=== PATIENT | female | born 1955 | race Caucasian/White ===

== ENCOUNTER 2024-12-13 09:05 | Day surgery (SDC) | payer BC, SELFPAY ==
[2024-12-13 09:28] VITALS: BP 133/60; PULSE 63; RESP 18; TEMP 36.6; O2SAT 97
[2024-12-13] MEDS: sodium chloride 0.9% 1,000 ML 15 ML IV (09:45)
--- NOTE | 2024-12-13 09:47 | W.PM.OPSFHP ---
Same Day Surgery H&P Indication for Procedure/HPI DATE OF PROCEDURE: December 13, 2024 CHIEF COMPLAINT/INDICATIONFOR SURGICAL PROCEDURE: need for screening colonoscopy PREOP DIAGNOSIS: need for screening colonoscopy PLANNED PROCEDURE: Operation Date: 12/13/24 11:00 Proposed Procedures p Colonoscopy [id number] G0105 Z12.11(Not Applicable) - Johnathon Tijerina MD Medications/Allergies* Home Medications ?Medication ?Instructions ?Recorded ?Confirmed ?Type levothyroxine 100 mcg tablet 100 mcg PO QDAY 11/08/24 12/11/24 History black seed 4.5 gram/5 mL oral oil 4.5 g PO DAILY 12/11/24 12/11/24 History multivitamin-iron (hematinic) 1 tab PO DAILY 12/11/24 12/11/24 History xapyhcfmmrns-qirfgqyk-dllblzv-folic 1 tab PO DAILY 12/11/24 12/11/24 History acid 400 mcg-vit K1 20 mcg tablet (Women's 50 Plus Advanced) omega 8-omp-ifk-fish oil 1,200 mg 2 cap PO DAILY 12/11/24 12/11/24 History (144 mg-216 mg) capsule (Fish Oil) Allergies/Adverse Reactions Allergy/AdvReac Type Severity Reaction Status Date / Time No Known Allergies Allergy Unverified 11/08/24 10:18 Current Medications: Generic Name Dose Route Start Last Admin Trade Name Freq PRN Reason Stop Dose Admin Sodium Chloride 1,000 mls @ 15 mls/hr 12/13/24 09:10 12/13/24 09:45 Sodium Chloride 0.9% IV 12/14/24 09:09 15 mls/hr .Q24H PRN Administration COLONOSCOPY FLUIDS Pertinent History/Comorbid Conditions* Family History (Updated 11/08/24 @ 10:22 by ANNE MARIE Sampson) Leukemia Father Breast cancer Grandmother Social History Smoking and tobacco/nicotine status: current every day tobacco/nicotine user Pertinent Exam Findings alert, oriented x 3, clear to auscultation bilaterally and regular rate & rhythm Recommendations Surgery/Procedure today Coding Level of Care Code Acute Code for Chg Fwd
--- NOTE | 2024-12-13 09:56 | ANES.PREANE2 ---
Pre-Anesthetic Assessment Height/Weight: Height 1.7 m Weight 63.503 kg Temp Pulse Resp BP Pulse Ox O2 Del Method 97.9 F 63 18 133/60 97 Room Air 12/13/24 09:28 12/13/24 09:28 12/13/24 09:28 12/13/24 09:28 12/13/24 09:28 12/13/24 09:28 Preop Diagnosis: need for screening colonoscopy Operation Date: 12/13/24 11:00 Proposed Procedures p Colonoscopy [id number] G0105 Z12.11(Not Applicable) - Johnathon Tijerina MD Was Beta Mary taken within 24 hours: N/A Was Clonidine taken within 24 hours: N/A Last intake: Intake Last Liquid Date 12/12/24 Last Liquid Time 23:30 Last Solid Date 12/11/24 Last Solid Time 22:00 Social Alcohol and Tobacco Exam alert, oriented x 3, clear to auscultation bilaterally and regular rate & rhythm Airway Submandibular: within normal limits Cervical ROM: within normal limits Mallampati: Class II Dentition: full History/ROS No significant history except as noted and No significant complaints Pulmonary None reported CV/HEM None reported None reported Hepatic None reported GI None reported Metabolic Thyroid Disease [facility] [place] None reported Neuropsych None reported Anesthetic Plan ASA status: 2 Anesthesia: Anesthesia Evaluation and MAC Risk of > 500 ml blood loss (7ml/kg in children): No Medications/Allergies Home Medications ?Medication ?Instructions ?Recorded ?Confirmed ?Last Taken ?Type levothyroxine 100 mcg tablet 100 mcg PO QDAY 11/08/24 12/11/24 12/13/24 History black seed 4.5 gram/5 mL oral oil 4.5 g PO DAILY 12/11/24 12/11/24 12/11/24 History multivitamin-iron (hematinic) 1 tab PO DAILY 12/11/24 12/11/24 12/11/24 History yiirndqxcjjc-lqzdprpq-ywkkyig-folic 1 tab PO DAILY 12/11/24 12/11/24 12/11/24 History acid 400 mcg-vit K1 20 mcg tablet (Women's 50 Plus Advanced) omega 7-ldp-mmz-fish oil 1,200 mg 2 cap PO DAILY 12/11/24 12/11/24 12/11/24 History (144 mg-216 mg) capsule (Fish Oil) Allergies Allergy/AdvReac Type Severity Reaction Status Date / Time No Known Allergies Allergy Unverified 11/08/24 10:18 Current Medications Generic Name Dose Route Start Last Admin Trade Name Freq PRN Reason Stop Dose Admin Sodium Chloride 1,000 mls @ 15 mls/hr 12/13/24 09:10 12/13/24 09:45 Sodium Chloride 0.9% IV 12/14/24 09:09 15 mls/hr .Q24H PRN Administration COLONOSCOPY FLUIDS PFSH Anesthesia Family History (Updated 11/08/24 @ 10:22 by ANNE MARIE Sampson) Father Leukemia Mother No problems noted. Grandmother Breast cancer Social History Smoking and tobacco/nicotine status: current every day tobacco/nicotine user
[2024-12-13 10:51] VITALS: BP 135/71; PULSE 56; RESP 20; TEMP 36.2; O2SAT 100
[2024-12-13 11:00] VITALS: BP 142/76; PULSE 57; RESP 18; O2SAT 100
--- NOTE | 2024-12-13 11:30 | ANE.PACU2 ---
Inpatient post-anesthesia follow up: Airway intact: Yes Vital signs: Temperature 97.1 F Pulse Rate 57 Respiratory Rate 18 Blood Pressure 142/76 Pulse Oximetry 100 Oxygen Delivery Me thod Room Air Oxygen Flow Rate 3 Fraction of Inspir ed Oxygen Hydration adequate: Yes Nausea and vomiting: No Pain level: 1 Mental status: Baseline
== END 2024-12-13 11:23 | disposition home or self-care (01) ==
PROVIDERS: Visit Provider Surgery
PROC: 0DJD8ZZ Inspection of Lower Intestinal Tract, Via Natural or Artificial Opening Endoscopic (ICD-10-PCS; CPT 45378; principal; 2024-12-13 11:00)
DX: Z12.11 Encounter for screening for malignant neoplasm of colon (principal); D12.5 Benign neoplasm of sigmoid colon; K62.1 Rectal polyp; E07.9 Disorder of thyroid, unspecified; Z79.890 Hormone replacement therapy; F17.200 Nicotine dependence, unspecified, uncomplicated; Z79.899 Other long term (current) drug therapy
CPT/HCPCS: 45385; 88305; J2704; J7030